=== PATIENT | male | born 1975 | race Caucasian/White ===

== ENCOUNTER 2016-05-13 13:58 | Emergency (ER) | payer OTHER ==
[2016-05-13 14:30] VITALS: RESP 16
[2016-05-13] MEDS ORDERED: NS 1,000 ML IV ONE (17:03)
[2016-05-13] MEDS ORDERED: ONDANSETRON 4 MG/2 ML VIAL IVP ONE (17:03)
[2016-05-13] MEDS ORDERED: MECLIZINE HCL 25 MG TAB PO ONE (17:03)
--- NOTE | 2016-05-13 17:03 | EDPHY ---
H & P HPI/ROS: dizzy, nausea Chief complaint. Dizzy, nausea HPI. 40-year-old male presents emergency department nausea vomiting for 1 day. He had flu A last week. He has had 1 day of spinning type dizziness worse with head movement and standing position. Has no ringing in his ears or ear symptoms. He has had previous dizzy spells with workup including MRI. No chest pain, shortness of breath, abdominal pain. No fever. No focal weakness or paresthesias. ROS Constitutional. no fever/chills, no weakness Eyes. no problems with vision ENT. no sore throat, no nasal drainage Cardiovascular. no chest pain Respiratory. no shortness of breath, no cough Abdominal. Nausea . no problems urinating MS. no calf pain/swelling, no neck/back pain, no joint pain Skin. no rash Lymph. no swollen glands Neuro. Vertigo Past Medical/Surgical History: Past medical history significant for vertigo Social History: , nonsmoker, no alcohol Smoking Status: Never smoked Physical Exam: General Appearance: Alert well-developed male mild distress vital signs are stable Eyes: Pupils equal and round no pallor or injection. ENT, tympanic membranes are normal. Pharynx without injection Respiratory: There are no retractions, lungs are clear to auscultation. Cardiovascular: Regular rate and rhythm. Gastrointestinal: Abdomen is soft and nontender, no masses, bowel sounds normal. Neurological: Awake and alert, sensory and motor exams grossly normal. Skin: Warm and dry, no rashes. Musculoskeletal: Neck is supple nontender. Extremities symmetrical, full range of motion. Psychiatric: Patient is oriented X 3, there is no agitation. Constitutional: Initial Vital Signs Temperature (C) 36.8 C 05/13/16 14:27 Heart Rate 65 05/13/16 14:27 Respiratory Rate 16 05/13/16 14:27 Blood Pressure 105/64 05/13/16 14:27 O2 Sat (%) 97 05/13/16 14:27 O2 Delivery Mode Room Air Allergies/Adverse Reactions: No Known Allergies Allergy (Unverified 05/13/16 14:30) Home Medications: Medication Instructions Recorded NK [No Known Home Meds] 05/13/16 Medical Decision Making - Diagnostics EKG Interpretation: EKG interpreted by me shows normal sinus rhythm with normal interval and axis. QRS is normal no significant ST elevation or depression. The rate is 50. Procedures: IV normal saline, monitor IV Zofran. P.o. meclizine ED Course/Re-evaluation: Re-evaluation at 6:40 p.m. patient is stable and somewhat improved. Differential Diagnosis: I think that this is peripheral vertigo. I have also considered central etiologies. Considered upper respiratory infection and cardiac arrhythmia as well - Data Points Laboratory Results: Laboratory Results 05/13/16 17:11 05/13/16 17:11 05/13/16 05/13/16 17:11 17:11 WBC 9.22 10^3/uL 10^3/uL (3.80-9.50) RBC 5.30 10^6/uL 10^6/uL (4.40-6.38) Hgb 16.1 g/dL g/dL (13.7-17.5) Hct 45.3 % % (40.0-51.0) MCV 85.5 fL fL (81.5-99.8) MCH 30.4 pg pg (27.9-34.1) MCHC 35.5 g/dL g/dL (32.4-36.7) RDW 11.7 % % (11.5-15.2) Plt Count 253 10^3/uL 10^3/uL (150-400) MPV 10.2 fL fL (8.7-11.7) Neut % (Auto) 73.6 % % (39.3-74.2) Lymph % (Auto) 21.5 % % (15.0-45.0) [place] % (Auto) 3.8 % L % (4.5-13.0) Eos % (Auto) 0.3 % L % (0.6-7.6) Baso % (Auto) 0.3 % % (0.3-1.7) Nucleat RBC Rel Count 0.0 % % (0.0-0.2) Absolute Neuts (auto) 6.78 10^3/uL H 10^3/uL (1.70-6.50) Absolute Lymphs (auto) 1.98 10^3/uL 10^3/uL (1.00-3.00) Absolute Monos (auto) 0.35 10^3/uL 10^3/uL (0.30-0.80) Absolute Eos (auto) 0.03 10^3/uL 10^3/uL (0.03-0.40) Absolute Basos (auto) 0.03 10^3/uL 10^3/uL (0.02-0.10) Absolute Nucleated RBC 0.00 10^3/uL 10^3/uL (0-0.01) Immature Gran % 0.5 % % (0.0-1.1) Immature Gran # 0.05 10^3/uL 10^3/uL (0.00-0.10) Sodium 141 mEq/L mEq/L (134-144) Potassium 4.5 mEq/L mEq/L (3.5-5.2) Chloride 105 mEq/L mEq/L (97-110) Carbon Dioxide 24 mEq/l mEq/l (22-31) Anion Gap 12 mEq/L mEq/L (8-16) BUN 17 mg/dL mg/dL (7-23) Creatinine 0.8 mg/dL mg/dL (0.7-1.3) Estimated GFR > 60 Glucose 92 mg/dL mg/dL (70-100) Calcium 9.5 mg/dL mg/dL (8.5-10.4) Troponin I < 0.012 ng/mL ng/mL (0-0.034) Medications Given: Discontinued Medications Sodium Chloride (Ns) 1,000 mls @ 0 mls/hr IV ONCE ONE PRN Reason: Wide Open Stop: 05/13/16 17:04 Last Admin: 05/13/16 17:23 Dose: 1,000 mls Meclizine HCl (Meclizine Hcl) 25 mg PO EDNOW ONE Stop: 05/13/16 17:04 Last Admin: 05/13/16 17:23 Dose: 25 mg Ondansetron HCl (Zofran) 4 mg IVP EDNOW ONE Stop: 05/13/16 17:04 Last Admin: 05/13/16 17:23 Dose: 4 mg Departure - Departure Disposition: Home, Routine, Self-Care Clinical Impression: Vertigo Condition: Good Instructions: Vertigo (ED) Additional Instructions: Use meclizine every 8 hours for dizziness. Zofran for nausea if necessary. Return for worsening symptoms. Call ENT physician tomorrow for further evaluation. Return sooner for worsening symptoms Referrals: Erik London, [Primary Care Provider] - As per Instructions Razia Briones MD [Medical Doctor] - 1-2 days without fail
[2016-05-13 17:19] LABS: % IMMATURE GRANULYOCYTES 0.5 % (0.0-1.1); ABSOLUTE IMMATURE GRANULOCYTES 0.05 10^3/uL (0.00-0.10); ADD DIFF? NO; ADD MORPH? NO; ADD SCAN? NO; ATYPICAL LYMPHOCYTE FLAG 0 (0-99); FRAGMENT RBC FLAG 0 (0-99); HEMATOCRIT 45.3 % (40.0-51.0); HEMOGLOBIN 16.1 g/dL (13.7-17.5); LEFT SHIFT FLG 0 (0-99); LIPEMIA HEMOLYSIS FLAG 90 (0-99); MEAN CELL HEMOGLOBIN 30.4 pg (27.9-34.1); MEAN CELL HEMOGLOBIN CONCENTR. 35.5 g/dL (32.4-36.7); MEAN CELL VOLUME 85.5 fL (81.5-99.8); MEAN PLATELET VOLUME 10.2 fL (8.7-11.7); PLATELET CLUMPS FLAG 0 (0-99); PLATELET COUNT 253 10^3/uL (150-400); RED CELL DISTRIBUTION WIDTH 11.7 % (11.5-15.2)
[2016-05-13 17:37] LABS: ANION GAP 12 mEq/L (8-16); CALCIUM 9.5 mg/dL (8.5-10.4); CARBON DIOXIDE 24 mEq/l (22-31); CHLORIDE 105 mEq/L (97-110); CREATININE 0.8 mg/dL (0.7-1.3); GLOMERULAR FILTRATION RATE > 60; GLUCOSE 92 mg/dL (70-100); POTASSIUM 4.5 mEq/L (3.5-5.2); SODIUM 141 mEq/L (134-144)
[2016-05-13 17:49] LABS: TROPONIN I < 0.012 ng/mL (0-0.034)
--- NOTE | 2016-05-13 18:42 | CPEKG ---
Heart Rate: 50 RR Interval: 1200 P-R Interval: 152 QRSD Interval: 82 QT Interval: 444 QTC Interval: 405 P Tyler: 58 QRS Tyler: 54 T Wave Tyler: 37 EKG Severity - NORMAL ECG - EKG Impression: SINUS RHYTHM Electronically Signed By: Pedro Ramsay 14-May-2016 00:13:24
[2016-05-13 19:37] VITALS: BP 109/59; PULSE 51; TEMP 97.2; O2SAT 100
== END 2016-05-13 19:36 | disposition home or self-care (01) ==
DX: R42 Dizziness and giddiness (principal)
CPT/HCPCS: 96374; J2405